=== PATIENT | female | born 1975 ===

== ENCOUNTER 2019-04-16 09:59 | Outpatient (CLI) | payer BC ==
--- NOTE | 2019-04-16 11:11 | CT ---
CT ABDOMEN AND PELVIS WITH ORAL AND IV CONTRAST: HISTORY: Left lower quadrant pain. FINDINGS: The lung bases are unremarkable. The liver, spleen, pancreas, and adrenal glands are normal. There is a nonobstructing, tiny right renal calculus. A 6 mm low density lesion in the left kidney is like ly a cyst. No free air, free fluid, or lymphadenopathy is seen in the abdomen or pelvis. The small bowel loops are not abnormally dilated. A normal appearing appendix is present. No pericolonic inflammatory freedom nges are seen. Uterus and ovaries are present. There is a 2.3 cm cyst in the left adnexa, likely ovarian. No osteo lytic or osteoblastic lesions are identified. IMPRESSION: 1. Nonobstructing, tiny right renal calculus. 2. Small left renal cyst. 3. A 2.3 cm left adnexal cyst, likely ovarian. POS: [facility]
[2019-04-16] MEDS ORDERED: ISOVUE-370 76%-LOCM 1 ML ONE (13:43)
== END 2019-04-16 10:00 | disposition home or self-care (01) ==
LOC: BICCT 09:59
PROVIDERS: ATTEND Family Medicine
DX: R10.32 Left lower quadrant pain (principal); N28.1 Cyst of kidney, acquired; N20.0 Calculus of kidney; N83.8 Other noninflammatory disorders of ovary, fallopian tube and broad ligament
CPT/HCPCS: 74177; Q9966